=== PATIENT | female | born 1970 | race Caucasian/White ===

== ENCOUNTER 2017-05-22 22:40 | Emergency (ER) | payer OTHER ==
[2017-05-22 22:46] VITALS: BP 129/78; BMI 25.7
[2017-05-22] MEDS ORDERED: NS 1000 ML 1,000 ML ONE (23:41)
[2017-05-22] MEDS ORDERED: PHENERGAN INJ 25 MG ONE (23:41)
[2017-05-22] MEDS ORDERED: NS 1000 ML 1,000 ML IV ONE (23:41)
[2017-05-22] MEDS ORDERED: PHENERGAN INJ 25 MG IV ONE (23:41)
--- NOTE | 2017-05-22 23:42 | DR.GENAD ---
HPI - PCP Primary Care Physician: NEPTALI - HPI Comment HPI Comment: HOME MEDS NOT HELPING. GETTING WORSE. - Complaint/Symptoms Chief Complaint Doctors Comments: N/V TIMES 4 HOURS WITH ABDOMINAL CRAMPING ON AND OFF. Chief Complaint:: N/V X 4 HOURS - Nurses notes reviewed Nurses Notes Review: Yes - Source History Provided: Patient - Mode of Arrival Mode of Arrival: Ambulatory - Timing Onset of Chief Complaint: 05/22/17 Came on: Suddenly - Duration Duration: Constant Duration: Days - Severity Severity: Moderate PMH - PMH Past Medical History: Yes Past Medical History: Hypertension Past Surgical History: No - Family History History of Family Medical Conditions: Yes Family Medical History: Hypertension - Social History Does patient currently use any type of tobacco product: No Have you used tobacco products in the last 12 months: No Type of Tobacco Use: None Does any household member use tobacco: No Alcohol Use: Occasionally Do you use any recreational Drugs:: No Lives With: Family Lives Where: Home - infectious screening In the last 2 months have you had wt loss of >10#?: NO Have you had fever, night sweats or hemotysis?: No Have you traveled outside the country in the last 6 months?: No Isolation: Standard ROS - Review of Systems Constitutional: Weakness, Fatigue. negative: Chills, Fever Eyes: No Symptoms Reported. negative: Eye Pain, Discharge ENTM: No Symptoms Reported. negative: Ear Pain, Nose Discharge, Nose Congestion , Throat Pain Respiratoy: No Symptoms Reported. negative: Productive Cough, Non-Productive Cough, Moist Cough, Short of Breath, Wheezing, Hemoptysis Cardiovascular: negative: Chest Pain, Edema Gastrointestinal/Abdominal: Abdominal Pain, Nausea, Vomiting Genitourinary: negative: Dysuria, Frequency, Hematuria Neurological: negative: Headache, Weakness, Dizziness Musculoskeletal: No Symptoms Reported Integumentary: Dryness Hematologic/Lymphatic: No Symptoms Reported Endocrine: No Symptoms Reported All Other Systems: Reviewed and Negative PE - Vital Signs Vitals: Temperature 97.1 F Pulse Rate 89 Respiratory Rate 18 Blood Pressure 129/78 O2 Sat by Pulse Oximetry 98 - General Limitations: No Limitations General Appearance: Alert - Head Head Exam: Normal Inspection - Eyes Eye exam: Normal Appearance - ENT ENT Exam: Normal External Ear Exam External Ear Exam: Normal External Inspection TM/Canal Exam: Bilateral Normal Nose Exam: Normal Nose Exam Mouth Exam: Normal Inspection Throat Exam: Normal Inspection - Neck Neck Exam: Trachea Midline - Chest Chest Inspection: Symmetric Chest Wall Rise - Respiratory Respiratory Exam: Normal Lung Sounds Bilat Respiratory Exam: Bilateral Clear to Auscultation - Cardiovascular Cardiovascular Exam: Regular Rate, Normal Rhythm, Normal Heart Sounds - Abdominal Exam Abdominal Exam: Normal Bowel Sounds, Soft, Tenderness Abdominal Tenderness: Diffuse, Moderate - Extremities Extremities Exam: Normal Inspection - Back Back Exam: Normal Inspection - Neurologic Neurological Exam: Alert, Oriented X3 - Psychiatric Psychiatric Exam: Normal Affect, Normal Mood - Skin Skin Exam: Normal Color MDM - Additional Information Additional Information Obtained From: Family - Differential Diagnosis Differential Diagnosis: ABDOMINAL PAIN, NAUSEA/VOMITING. Course - Treatment Treatment: SEE ORDERS. PATIENT RESTLESS AND SHAKY AFTER IV PHENERGAN. IV BENADYL , FEELING BETTER. - Education/Counseling Education/Counseling: Patient, Education Educated On: Treatment, Diagnosis, Needs for Follow Up ROR - Labs Reviewed Laboratory Results Reviewed?: Yes Result Diagrams: 05/22/17 23:55 05/22/17 23:55 Laboratory: WBC 12.4 X10^3/uL (3.6-10.0) H 05/22/17 23:55 RBC 4.77 X10^6/uL (3.5-5.4) 05/22/17 23:55 Hgb 15.2 g/dL (12.0-16.0) 05/22/17 23:55 Hct 43.8 % (36.0-47.0) 05/22/17 23:55 MCV 91.8 fL (80.0-100.0) 05/22/17 23:55 MCH 31.8 pg (27.0-34.0) 05/22/17 23:55 MCHC 34.7 g/dL (33.0-35.0) 05/22/17 23:55 RDW 13.1 % (11.6-16.5) 05/22/17 23:55 Plt Count 277 X10^3/uL (150.0-450.0) 05/22/17 23:55 MPV 8.2 fL (7.4-11.0) 05/22/17 23:55 Neut % (Auto) 83.0 % (42.0-75.0) H 05/22/17 23:55 Lymph % (Auto) 11.3 % (21.0-51.0) L 05/22/17 23:55 [place] % (Auto) 4.3 % (0.0-13.0) 05/22/17 23:55 Eos % (Auto) 1.3 % (0.9-2.9) 05/22/17 23:55 Baso % (Auto) 0.1 % (0.2-1.0) L 05/22/17 23:55 Neut # (Auto) 10.3 x10^3/uL (2.2-4.8) H 05/22/17 23:55 Lymph # (Auto) 1.4 X10^3/uL (1.3-2.9) 05/22/17 23:55 [place] # (Auto) 0.5 x10^3/uL (0.3-0.8) 05/22/17 23:55 Eos # (Auto) 0.2 x10^3/uL (0.0-0.2) 05/22/17 23:55 Baso # (Auto) 0.0 X10^3/uL (0.0-0.1) 05/22/17 23:55 Absolute Nucleated RBC 0.0 /100WBC 05/22/17 23:55 Sodium 137 mmol/L (136-145) 05/22/17 23:55 Corrected Sodium TNP 05/22/17 23:55 Potassium 3.7 mmol/L (3.5-5.1) 05/22/17 23:55 Chloride 99 mmol/L (98-107) 05/22/17 23:55 Carbon Dioxide 30.9 mmol/L (21-32) 05/22/17 23:55 BUN 12 mg/dL (7-18) 05/22/17 23:55 Creatinine 0.92 mg/dL (0.55-1.02) 05/22/17 23:55 Est GFR (MDRD) Af Amer > 60 (>60) 05/22/17 23:55 Est GFR (MDRD) Non-Af > 60 (>60) 05/22/17 23:55 Glucose 105 mg/dL (65-99) H 05/22/17 23:55 Calcium 8.6 mg/dL (8.5-10.1) 05/22/17 23:55 Corrected Calcium TNP 05/22/17 23:55 Total Bilirubin 0.80 mg/dL (0.2-1.0) 05/22/17 23:55 AST 19 Units/L (15-37) 05/22/17 23:55 ALT 29 Units/L (12-78) 05/22/17 23:55 Alkaline Phosphatase 66 Units/L (46-116) 05/22/17 23:55 Total Protein 8.3 g/dL (6.4-8.2) H 05/22/17 23:55 Albumin 4.0 g/dL (3.4-5.0) 05/22/17 23:55 Globulin 4.3 g/dL (2.5-4.5) 05/22/17 23:55 Albumin/Globulin Ratio 0.9 Ratio (1.1-2.1) L 05/22/17 23:55 Amylase 42 Units/L (25-115) 05/22/17 23:55 Lipase 99 Units/L (73-393) 05/22/17 23:55 Specimen Type Clean catch urine 05/23/17 00:57 Urine Color Yellow (YELLOW) 05/23/17 00:57 Urine Appearance Clear (CLEAR) 05/23/17 00:57 Urine pH 5.0 (5.0 - 8.0) 05/23/17 00:57 Ur Specific [place] 1.030 (1.000-1.030) 05/23/17 00:57 Urine Protein Negative (NEGATIVE) 05/23/17 00:57 Urine Glucose (UA) Negative (NEGATIVE) 05/23/17 00:57 Urine Ketones Negative (NEGATIVE) 05/23/17 00:57 Urine Occult Blood 5+ (NEGATIVE) 05/23/17 00:57 Urine Nitrite Negative (NEGATIVE) 05/23/17 00:57 Urine Bilirubin Negative (NEGATIVE) 05/23/17 00:57 Urine Urobilinogen Normal (NORMAL) 05/23/17 00:57 Ur Leukocyte Esterase 1+ (NEGATIVE) 05/23/17 00:57 Urine RBC 10-20 /HPF (NONE SEEN) 05/23/17 00:57 Urine WBC 0-2 /HPF (NONE SEEN) 05/23/17 00:57 Ur Squamous Epith Cells Moderate /HPF (NEGATIVE) 05/23/17 00:57 Urine Bacteria Trace /HPF (NEGATIVE) 03/16/18 00:57 Urine Mucus Moderate /HPF (NEGATIVE) 05/23/17 00:57 Ur Culture Indicated? No/not indicated 05/23/17 00:57 - XRAY XRAY Interpreted by: Radiologist XRAY Findings: REPORT DISCUSS WITH PATIENT AND HER . - Diagnosis Discharge Problem: Vomiting Qualifiers: Vomiting type: bilious vomiting Nausea presence: with nausea Qualified Code(s) : R11.14 - Bilious vomiting Abdominal pain Qualifiers: Abdominal location: generalized Qualified Code(s): R10.84 - Generalized abdominal pain - Discharge Plan Disposition: 01 HOME, SELF-CARE Condition: Stable - Follow ups/Referrals Follow ups/Referrals: MACKENZIE GUNDERSON [Primary Care Provider] - 3 days - Instructions Instructions: Nausea and Vomiting, Adult, [id number], Abdominal Pain, Adult, [id number] Additional Instructions: RETURN TO ED IF WORSE.
[2017-05-23 00:04] LABS: BASOPHILS % (AUTO) 0.1 % (0.2-1.0); EOSINOPHILS # (AUTO) 0.2 x10^3/uL (0.0-0.2); EOSINOPHILS % (AUTO) 1.3 % (0.9-2.9); HEMATOCRIT 43.8 % (36.0-47.0); HEMOGLOBIN 15.2 g/dL (12.0-16.0); LYMPHOCYTES # (AUTO) 1.4 X10^3/uL (1.3-2.9); LYMPHOCYTES % (AUTO) 11.3 % (21.0-51.0); MEAN CORPUSCULAR HEMOGLOBIN 31.8 pg (27.0-34.0); MEAN CORPUSCULAR HGB CONC 34.7 g/dL (33.0-35.0); MEAN CORPUSCULAR VOLUME 91.8 fL (80.0-100.0); MEAN PLATELET VOLUME 8.2 fL (7.4-11.0); MONOCYTES # (AUTO) 0.5 x10^3/uL (0.3-0.8); MONOCYTES % (AUTO) 4.3 % (0.0-13.0); NEUTROPHILS # (AUTO) 10.3 x10^3/uL (2.2-4.8); PLATELET COUNT 277 X10^3/uL (150.0-450.0); RED BLOOD COUNT 4.77 X10^6/uL (3.5-5.4); RED CELL DISTRIBUTION WIDTH 13.1 % (11.6-16.5); WHITE BLOOD COUNT 12.4 X10^3/uL (3.6-10.0)
[2017-05-23] MEDS ORDERED: BENADRYL INJ 50 MG VIAL ONE (00:09)
[2017-05-23] MEDS ORDERED: BENADRYL INJ 50 MG VIAL IVP ONE (00:12)
[2017-05-23 00:17] LABS: ALANINE AMINOTRANSFERASE 29 Units/L (12-78); ALKALINE PHOSPHATASE 66 Units/L (46-116); AMYLASE 42 Units/L (25-115); ASPARTATE AMINO TRANSFERASE 19 Units/L (15-37); BLOOD UREA NITROGEN 12 mg/dL (7-18); CALCIUM 8.6 mg/dL (8.5-10.1); CARBON DIOXIDE 30.9 mmol/L (21-32); CHLORIDE 99 mmol/L (98-107); CREATININE 0.92 mg/dL (0.55-1.02); LIPASE 99 Units/L (73-393); SODIUM 137 mmol/L (136-145); TOTAL PROTEIN 8.3 g/dL (6.4-8.2); eGFR BLACK RACES > 60 (>60); eGFR NON BLACK RACES > 60 (>60)
[2017-05-23 01:11] LABS: BILIRUBIN,URINE NEGATIVE (NEGATIVE); BLOOD/HEMOGLOBIN,URINE 5+ (NEGATIVE); GLUCOSE, URINE NEGATIVE (NEGATIVE); KETONES,URINE NEGATIVE (NEGATIVE); LEUKOCYTE ESTERASE ,URINE 1+ (NEGATIVE); NITRITES,URINE NEGATIVE (NEGATIVE); PROTEIN,URINE NEGATIVE (NEGATIVE); UROBILINOGEN,URINE NORMAL (NORMAL)
[2017-05-23 01:31] LABS: APPEARANCE,URINE CLEAR (CLEAR); BACTERIA,URINE TRACE /HPF (NEGATIVE); COLOR,URINE YELLOW (YELLOW); SQUAMOUS EPITHELIAL CELL,UR MODERATE /HPF (NEGATIVE)
[2017-05-23 01:32] LABS: MUCUS,URINE MODERATE /HPF (NEGATIVE)
--- NOTE | 2017-05-23 01:38 | RAD ---
HISTORY: Nausea and vomiting Study: Acute abdominal series Comparison: None Findings: The trachea is midline. The cardiac silhouette is unremarkable. The lungs are clear without focal i nfiltrate or effusion. The bony thorax is unremarkable. There is a normal bowel gas pattern. No pathological soft tissue mass or calcification can be observ ed. The bony structures are grossly intact. IMPRESSION: 1. No acute cardiopulmonary disease. 2. No evidence for acute abdominal pathology identified. Reported By:
== END 2017-05-23 01:52 | disposition home or self-care (01) ==
LOC: ER 22:40
DX: R11.14 Bilious vomiting (principal); R10.84 Generalized abdominal pain
CPT/HCPCS: 36415; 74022; 80053; 81001; 82150; 83690; 85025; 96365; 96367; 96374; 96375; 99283; 99284; A4222; J1200; J2550